=== PATIENT | male | born 1990 | race Asian ===

== ENCOUNTER 2020-06-30 04:50 | Emergency (ER) | payer OTHER ==
[~2020-06-30] VITALS: Ht 177.8 cm; Wt 95.3 kg
[2020-06-30 04:56] VITALS: BP 145/93
[2020-06-30 05:15] VITALS: BP 142/84
== END 2020-06-30 05:15 ==
LOC: MED 04:50
DX: S00.81XA Abrasion of other part of head, initial encounter (principal); Z02.89 Encounter for other administrative examinations; Y04.2XXA Assault by strike against or bumped into by another person, initial encounter; Y93.89 Activity, other specified; Y92.89 Other specified places as the place of occurrence of the external cause; Y99.8 Other external cause status
CPT/HCPCS: 99283